=== PATIENT | male | born 1960 | race Caucasian/White ===

== ENCOUNTER 2023-09-09 06:15 | Day surgery (SDC) | payer OTHER, SELFPAY ==
--- NOTE | 2023-08-05 13:08 | CM ---
Patient is scheduled for an elective L TKR on 09/09/23- he is a same day patient. Spoke with patient prior to surgery. Introduced role of Orthopedic Navigator. Patient reports that he lives with his and son in a two story home. There are two
steps to enter and a flight of steps to the second floor. There is currently a ramp to enter the home which is in place from his 's recent surgery. He currently functions independently. He has a cane. He has never had VN services. PCP is Christin
Georgi.
Discussed orthopedic program and post surgical plans. Reviewed that he will have VN services initially (medicare.gov website and ratings reviewed) and will then start outpatient PT. Patient selects [facility]N (face sheet faxed to [facility] to facilitate
confirmation of benefits) for his home care needs and will coem to for outpatient PT.
Patient is in agreement with plan and states that either his or son will be home with him.
Patient will complete online education.
Plan: Orthopedic Navigator will remain available to assist with the care of patient and will reassess discharge needs after surgery.
[2023-08-21 09:05] VITALS: BMI 39.7
--- NOTE | 2023-08-21 10:13 | HPS.HSE ---
Family Physician
-
Family Physician: Christin Laureano
Chief Complaint
-
Advanced primary osteoarthritis of the left knee. Same-day surgery.
History of Present Illness
The patient is a 62-year-old male presenting today for advanced primary osteoarthritis of the left knee. The patient reports significant left knee pain secondary to this diagnosis. He notes that his current left knee pain is greatly
interfering with his activities of daily living and is overall impacting his quality of life. He has tried and failed multiple conservative treatment measures in the past for his knee pain. These conservative treatment measures include
intra-articular injections, self-directed therapeutic exercises, activity modification, attempted weight loss, medical management with Tylenol and NSAIDs, and the application of ice and/or heat. Recent x-rays of the left knee revealed advanced
osteoarthritis, subluxation of the femur on his tibia, complete loss of the medial joint space, and periarticular spurs about all 3 compartments. He was determined to be in need of a left total knee arthroplasty. He denies any current complaints
today, such as chest pain, shortness of breath, palpitations, nausea, vomiting, diarrhea, lightheadedness, dizziness, cough, sore throat, or fever.
Medical History
Past Medical History
Past Medical History: Reports Other
Additional Past Medical History:
1. Osteoarthritis.
2. Hypertension.
3. Hyperlipidemia.
4. First degree AV block.
5. Mild left ventricular hypertrophy.
6. Obstructive sleep apnea, compliant with CPAP (setting 14).
7. Chronic dyspnea on exertion.
8. Non-insulin dependent diabetes, A1c 5.9.
9. Lipoma of sigmoid colon.
10. Fatty liver disease.
11. MRSA positive nasal screen pre-operatively.
12. Obesity, BMI 39.7.
Past Surgical History: Reports Other
Additional Past Surgical History:
1. Bilateral knee meniscus repair.
2. Right ring trigger finger release.
3. Umbilical hernia repair.
4. Septoplasty.
5. Colonoscopy.
Social History
Tobacco: Non-smoker
Alcohol: None
Personal:
Living: Other (He lives with his and son in a 2 story home. )
Family History
Family History: Not pertinent
Allergies / Home Medications
Allergy/Medication List:
Home medications:
1. Amlodipine 10 mg p.o. at bedtime.
2. Aspirin 81 mg p.o. daily.
3. Lisinopril 30 mg p.o. at bedtime.
4. Wolford 3/fish oil 2 capsules p.o. daily.
5. Rosuvastatin 5 mg p.o. at bedtime.
6. Ozempic 0.5 mg subcutaneous on Mondays.
Allergies: Pollen. No known drug allergies.
Review of Systems
-
A 12 point ROS was completed and negative except as noted: Yes
Physical Exam
Vital Signs
Blood pressure 148/79. Heart rate 62. Respirations 18. Pulse ox 95%, increasing to 98% on room air with encouraged deep breathing.
Height 5 feet, 10 inches. Weight 125.6 kg. BMI 39.7.
Physical Exam
General: Well Developed, Well Nourished and No Apparent Distress
HEENT: NormoCephalic, Moist mucous membranes, Atraumatic and PERRLA
Respiratory: Clear
Cardiac: Regular Rhythm
GI: Soft, Non Tender, Non Distended and Other (Obese. )
Musculoskeletal: Other (Left knee: range of motion 10-120. Medial joint line tenderness. No lateral joint line tenderness. Positive patellar grind. Small effusion. Mild instability to valgus stress. Palpable belle's cyst.)
Skin: Warm and Dry
Neuro: AO x 3 and Nonfocal/grossly intact
Laboratory Results
-
DIAGNOSTIC STUDIES as of 08/21/2023: White blood cell count 4.9. Hemoglobin 13.7. Platelet count 206,000. Sodium 139. Potassium 4.7. BUN 25. Creatinine 0.9. Glucose 96. Hemoglobin A1c 5.9. Calcium 9.4. AST 27. ALT 31. Albumin 4.7. MRSA nasal screen
positive; the patient was started on nasal Mupirocin ointment pre-operatively.
EKG 08/21/2023: Sinus rhythm with first degree AV block. Non-specific intra-ventricular conduction block. Nonspecific T wave abnormality.
Echocardiogram 03/12/2023: Normal left ventricular chamber size. Normal left ventricular systolic function. Left ventricular ejection fraction is 60-65% by volumetric assessment.�Normal regional wall motion. Mild concentric left ventricular
hypertrophy. Normal diastolic function. Aortic valve opens normally. Trileaflet aortic valve. Aortic sclerosis without stenosis. Trace aortic regurgitation. Since the echocardiogram of 05/28/2017, there is no significant change.
Stress echocardiogram 03/12/2023: Normal treadmill stress echocardiogram at 9.75 mets. Low risk stress test.
�
Impression/Plan
-
CLEARANCES:
1. Primary medical, Dr. Mirian Valentin, cleared.
Primary medical phone number: [phone].
2. Cardiology, Dr. Andres Newman, cleared.
3. Dental waived.
IMPRESSION/PLAN:
1. Advanced primary osteoarthritis of the left knee in need of a left total knee arthroplasty with Dr. Bhavesh Cadet on 09/09/2023. The benefits and risks of the procedure have been explained to the patient. The patient understands these risks and
wishes to proceed.
2. DVT prophylaxis: Aspirin with bilateral venous compression devices.
3. Pain management: The patient has stable comorbidities as referenced by his primary care physician and air pollution specialist and is medically optimized to proceed as a Same-Day Surgery candidate on 09/09/2023. In preparation for his procedure, he has
already been prescribed Oxycodone 5 mg, 1-2 tablets p.o. every 6 hours as needed for moderate to severe post-operative pain. He will also utilize Tylenol 1000 mg p.o. every 6 hours and Celebrex 200 mg p.o. daily for pain control. Decadron will be
avoided due to his history of diabetes.
4. MRSA positive nasal screen: We will include IV Vancomycin in addition to IV Ancef thalia-operatively for joint prophylaxis. He will be advised to continue his nasal Mupirocin ointment for 2 weeks post-surgery as his surgical incision heals.
Patient's phone number: [phone].
Patient's contact (Teagan Key - Spouse): [phone].
[2023-08-21 10:14] LABS: Hematocrit 40.5 % (39.0-52.0); Hemoglobin 13.7 g/dL (13.0-18.0); Mean Corp Hgb Conc. 33.8 g/dL (33.0-37.0); Mean Corpuscular Hgb 28.8 pg (27.0-31.0); Mean Corpuscular Volume 85.1 fL (80.0-94.0); Mean Platelet Volume 9.7 fL (7.4-10.4); Platelet Count 206 10^3/uL (130-400); Red Blood Cell Count 4.76 10^6/uL (4.70-6.10); Red Cell Dist. Width 12.9 % (11.5-14.5); White Blood Cell Count 4.9 10^3/uL (4.8-10.8)
[2023-08-21 10:30] LABS: ALT (SGPT) 31 U/L (0-50); AST (SGOT) 27 U/L (17-59); Albumin 4.7 g/dl (3.5-5.0); Alkaline Phosphatase 56 U/L (38-126); Blood Urea Nitrogen 25 mg/dl (9-20); Calcium 9.4 mg/dl (8.4-10.2); Carbon Dioxide 25 mmol/L (22-30); Chloride 105 mmol/L (98-107); Estimated Creatinine Clearance 115 ml/min; Glucose 96 mg/dl (70-99); Potassium 4.7 mmol/L (3.5-5.1); Sodium 139 mmol/L (135-145); Total Bilirubin 0.7 mg/dl (0.2-1.3); Total Protein 7.5 g/dl (6.3-8.2); eGFR > 60.00
[2023-08-21 12:00] LABS: Glycohemoglobin (HgbA1c) 5.9 % (4.0-5.6)
[2023-08-21 15:41] VITALS: BMI 39.7
[2023-09-09] VITALS (14 sets, daily range): BP systolic 114–157; BP diastolic 67–90
[2023-09-09 07:27] LABS: Glucose - Point of Care 99 mg/dl (70-99)
[2023-09-09] MEDS: NORMOSOL-R 1000 IV (07:45)
[2023-09-09] MEDS: TYLENOL 650 MG PO (07:54)
[2023-09-09] MEDS: CELEBREX 200 MG PO (07:54)
[2023-09-09] MEDS: VANCOCIN 300 MG IV (07:58)
[2023-09-09] MEDS: VANCOCIN 300 ML IV (07:58)
--- NOTE | 2023-09-09 11:46 | CM ---
Patient had planned L TKR today. Met with patient at bedside to review discharge plans. Patient will be returning home today with services through [facility]. On , 09/12, patient will start outpatient PT at [facility]. Reviewed MD follow
up in two weeks and patient is aware of need to schedule appointment.
Patient will need a rolling walker issued prior to discharge; PT aware. Script obtained and left with RN.
PT and VN were kept updated as to progress and discharge plans.
[2023-09-09] MEDS: ROXICODONE 5 MG PO (14:23)
[2023-09-09] MEDS: FLOMAX 0.400000000000000022 MG PO (14:24)
[2023-09-09] MEDS: ANCEF 5 IV (14:24)
== END 2023-09-09 15:32 | disposition home health service (06) ==
LOC: SDS 06:15
PROVIDERS: ATTENDING PHYSICIAN Specialist; FAMILY PHYSICIAN Physician Assistant Medical; OTHER PHYSICIAN Internal Medicine Cardiovascular Disease; REFERRING PHYSICIAN Physician Assistant
DX: M17.12 Unilateral primary osteoarthritis, left knee (principal)
CPT/HCPCS: 27447; 36415; 73560; 80053; 82962; 83036; 85027; 87070; 87147; 93005; 97116; 97161; C1713; C1776

== ENCOUNTER 2023-09-19 13:02 | Outpatient (RCR) | payer OTHER, SELFPAY | END 2023-09-19 23:59 | disposition home or self-care (01) | LOC: RPT 13:02 | PROVIDERS: ATTENDING PHYSICIAN Specialist; FAMILY PHYSICIAN Physician Assistant Medical | DX: Z47.1 Aftercare following joint replacement surgery (principal); Z96.652 Presence of left artificial knee joint; Z73.6 Limitation of activities due to disability | CPT/HCPCS: 97110; 97163; 97530 ==

== ENCOUNTER 2023-10-18 15:02 | Outpatient (RCR) | payer OTHER, SELFPAY | END 2023-10-18 23:59 | disposition home or self-care (01) | LOC: RPT 15:02 | PROVIDERS: ATTENDING PHYSICIAN Specialist; FAMILY PHYSICIAN Physician Assistant Medical | DX: Z47.1 Aftercare following joint replacement surgery (principal); Z96.652 Presence of left artificial knee joint; Z73.6 Limitation of activities due to disability | CPT/HCPCS: 97110; 97112; 97140; 97530 ==

== ENCOUNTER 2023-10-23 08:06 | Outpatient (RCR) | payer OTHER, SELFPAY | END 2023-10-23 08:49 | disposition home or self-care (01) | LOC: RPT 08:06 | PROVIDERS: ATTENDING PHYSICIAN Specialist; FAMILY PHYSICIAN Physician Assistant Medical | DX: Z47.1 Aftercare following joint replacement surgery (principal); Z73.6 Limitation of activities due to disability; R26.2 Difficulty in walking, not elsewhere classified; M62.81 Muscle weakness (generalized); Z96.652 Presence of left artificial knee joint | CPT/HCPCS: 97110 ==

== ENCOUNTER → 2023-11-11 06:35 | Day surgery (SDC) | payer OTHER, SELFPAY | LOC: GI 06:35 | PROVIDERS: ATTENDING PHYSICIAN Internal Medicine | DX: Z12.11 Encounter for screening for malignant neoplasm of colon (principal); D12.3 Benign neoplasm of transverse colon; K51.40 Inflammatory polyps of colon without complications; D12.5 Benign neoplasm of sigmoid colon; D12.6 Benign neoplasm of colon, unspecified; K57.30 Diverticulosis of large intestine without perforation or abscess without bleeding; K62.89 Other specified diseases of anus and rectum; K64.9 Unspecified hemorrhoids | CPT/HCPCS: 45385; 45380; 88305 ==